=== PATIENT | female | born 1985 | race Caucasian/White ===

== ENCOUNTER 2018-07-26 21:30 | Emergency (ER) | payer OTHER ==
[2018-07-26] MEDS ORDERED: BABY ASPIRIN 81 MG CHEW PO ONE (21:55)
[2018-07-26] MEDS ORDERED: Ativan 2 MG/1 ML VIAL IV ONE (21:55)
[2018-07-26] MEDS ORDERED: TRANDATE 20 MG/5 ML SYRINGE IV ONE ×2 (21:55→22:21)
--- NOTE | 2018-07-26 22:04 | ERPHSYRPT ---
- History of Present Illness Time Seen by Provider: 07/26/18 21:48 Historian: patient Exam Limitations: no limitations Patient Subjective Stated Complaint: Chest pain Triage Nursing Assessment: Patient ambulated back to ED and transferred self to bed. Patient brought in from [facility]. Patient states she complained of chest pain while laying down around 2004. Patient's blood pressure was elevated 165/112 with pulse of 109. [facility] staff called nurse and was told to give Lisinopril 10mg and Citalopram 10mg. Patient had no relief so was brought to ER. Patient states she has been nauseated and vomiting. Patient's lungs clear a/ p anna. No edema noted. Heart tones audible. Physician History: Pt has been c/o chest pressure for days off and on, now steady since 6 PM in senior care. She is also c/o SOB, nausea, vomiting once, but no abdominal pain, diarrhea, fever, cold symptoms, productive cough. She is every day smoker, has a history of HTN, denies cardiac history. Timing/Duration: hour(s) (4) Activities at Onset: none Quality: pressure Location: central Chest Pain Radiation: no radiation Severity of Pain-Max: severe Severity of Pain-Current: severe Modifying Factors: Improves With: nothing Associated Symptoms: nausea, vomiting, shortness of breath Prior Chest Pain/Cardiac Workup: non-cardiac Nitro Today/Relief: no nitro taken today Aspirin Treatment Today: no aspirin today Allergies/Adverse Reactions: No Known Drug Allergies Allergy (Unverified 07/26/18 21:32) Home Medications: Citalopram Hydrobromide [Citalopram HBr] 10 mg PO DAILY 07/26/18 [History] Clonidine HCl 0.1 mg [Catapres 0.1 MG] 1 tab PO DAILY 07/26/18 [History] Lisinopril 10 mg [Zestril 10 MG] 1 tab PO DAILY 07/26/18 [History] Hx Influenza Vaccination/Date Given: No Hx Pneumococcal Vaccination/Date Given: No Immunizations Up to Date: Yes - Review of Systems Constitutional: No Symptoms Eyes: No Symptoms Ears, Nose, & Throat: No Symptoms Respiratory: Dyspnea Cardiac: Chest Pain Abdominal/Gastrointestinal: Nausea, Vomiting Genitourinary Symptoms: No Symptoms Musculoskeletal: No Symptoms Skin: No Symptoms Neurological: Dizziness Psychological: Anxiety All Other Systems: Reviewed and Negative - Past Medical History Neurological History: No Pertinent History ENT History: No Pertinent History Cardiac History: Hypertension Respiratory History: No Pertinent History Endocrine Medical History: No Pertinent History Musculoskeletal History: No Pertinent History GI Medical History: No Pertinent History History: No Pertinent History Psycho-Social History: Anxiety Female Reproductive Disorders: No Pertinent History - Past Surgical History Past Surgical History: Yes Neuro Surgical History: Other Cardiac: No Pertinent History Respiratory: No Pertinent History Gastrointestinal: No Pertinent History Genitourinary: No Pertinent History Musculoskeletal: No Pertinent History Female Surgical History: Tubal Ligation Other Surgical History: Cyst removed from brain july 31 2017 - Social History Smoking Status: Current every day smoker How long have you smoked: 10 years Exposure to second hand smoke: No Drug Use: marijuana, methamphetamines, narcotics Patient Lives Alone: No ([facility]) - Female History Hx Last Menstrual Period: Jun 22, 2018 Hx Now: No - Nursing Vital Signs Nursing Vital Signs: Initial Vital Signs Pulse Rate 115 H 07/26/18 21:36 Respiratory Rate 20 07/26/18 21:36 Blood Pressure 154/119 07/26/18 21:36 O2 Sat by Pulse Oximetry 100 07/26/18 21:36 Pain Scale Pain Intensity 5 - Physical Exam General Appearance: no apparent distress Eye Exam: PERRL/EOMI, eyes nml inspection Ears, Nose, Throat Exam: normal ENT inspection, pharynx normal, moist mucous membranes Neck Exam: normal inspection, non-tender, supple, No carotid bruit, No JVD Respiratory Exam: normal breath sounds, lungs clear, airway intact, No chest tenderness Cardiovascular Exam: normal heart sounds, normal peripheral pulses, tachycardia , No murmur Gastrointestinal/Abdomen Exam: soft, normal bowel sounds, No tenderness, No distention, No mass, No guarding, No ecchymosis, No pulsatile mass, No rebound, No organomegaly Back Exam: normal inspection, No CVA tenderness Extremity Exam: normal inspection, No calf tenderness, No kaylynn's sign Neurologic Exam: alert, oriented x 3, cooperative, other (anxious) Skin Exam: normal color, warm, dry, No rash Lymphatic Exam: adenopathy SpO2 Interpretation: normal SpO2: 100 O2 Delivery: Room Air - Course Nursing assessment & vital signs reviewed: Yes EKG Interpreted by Me: RATE (110/min), NORMAL AXIS, Non-specific ST Changes, Other (LVH pattern, poor R wave progression, repeat Ek:34 AM: NSR 82/min, normal axis, LVH pattern, unchanged.) - Radiology Exams Chest X-ray Interpretation: Interpreted by me, Negative Ordered Tests: Active Orders 24 hr Category Date Time Status Rod Tape Operator STAT Care 07/26/18 21:57 Active EKG-ER Only STAT Care 07/26/18 21:58 Active EKG-ER Only STAT Care 07/27/18 00:08 Active IV Insertion STAT Care 07/26/18 21:55 Active Oxygen-ED Only Nasal Cannula 2 lpm Care 07/26/18 21:55 Active CHEST 1 VIEW (PORTABLE) Stat Exams 07/26/18 21:57 Taken CBC W DIFF Stat Lab 07/26/18 22:10 Completed CK-Creatinine Phosphokinase Stat Lab 07/26/18 22:10 Completed CMP Stat Lab 07/26/18 22:10 Completed D-DIMER QUANTITATION Stat Lab 07/26/18 22:10 Completed LIPASE Stat Lab 07/26/18 22:10 Completed MAGNESIUM Stat Lab 07/26/18 22:10 Completed NT PRO BNP Stat Lab 07/26/18 22:10 Completed PROTIME WITH INR Stat Lab 07/26/18 22:10 Completed PTT Stat Lab 07/26/18 22:10 Completed TROPONIN Q3H Lab 07/26/18 22:10 Completed TROPONIN Q3H Lab 07/27/18 01:00 Ordered TROPONIN Q3H Lab 07/27/18 04:00 Ordered TROPONIN Q3H Lab 07/27/18 07:00 Ordered TROPONIN Q3H Lab 07/27/18 10:00 Ordered UA W/RFX UR CULTURE Stat Lab 07/26/18 23:40 Completed Urine Triage Profile Stat Lab 07/26/18 23:40 Completed Medication Summary Discontinued Medications Generic Name Dose Route Start Last Admin Trade Name Freq PRN Reason Stop Dose Admin Aspirin 324 mg 07/26/18 21:55 07/26/18 22:25 Baby Aspirin 81 Mg Chew PO 07/26/18 21:56 324 mg STAT ONE Administration Aspirin Confirm 07/26/18 22:20 Baby Aspirin 81 Mg Chew Administered 07/26/18 22:21 Dose 324 mg .ROUTE .STK-MED ONE Labetalol HCl 20 mg 07/26/18 21:55 07/26/18 22:25 Trandate 20 Mg/5 Ml Syringe IV 07/26/18 21:56 20 mg STAT ONE Administration Labetalol HCl Confirm 07/26/18 22:21 Trandate 20 Mg/5 Ml Syringe Administered 07/26/18 22:22 Dose 20 mg IV .STK-MED ONE Lorazepam 1 mg 07/26/18 21:55 07/26/18 22:24 Ativan 2 Mg/1 Ml Vial IV 07/26/18 21:56 1 mg STAT ONE Administration Lorazepam Confirm 07/26/18 22:21 Ativan 2 Mg/1 Ml Vial Administered 07/26/18 22:22 Dose 2 mg .ROUTE .STK-MED ONE Trimethoprim/Sulfamethoxazole 1 tab 07/27/18 01:50 07/27/18 01:52 Bactrim Ds Tablet PO 07/27/18 01:51 1 tab STAT STA Administration Trimethoprim/Sulfamethoxazole Confirm 07/27/18 01:52 Bactrim Ds Tablet Administered 07/27/18 01:53 Dose 1 tab PO .STK-MED ONE Lab/Rad Data: Laboratory Result Diagrams 07/26/18 22:10 07/26/18 22:10 Laboratory Results 07/26/18 07/26/18 07/26/18 Range/Units 23:40 23:40 22:10 WBC (4.0-10.5) K/mm3 RBC (4.1-5.4) M/mm3 Hgb (12.0-16.0) gm/dl Hct (35-47) % MCV (78-100) fl MCH (26-32) pg MCHC (32-36) g/dl RDW (11.5-14.0) % Plt Count (150-450) K/mm3 MPV (6-9.5) fl Gran % (36.0-66.0) % Eos # (Auto) (0-0.5) Absolute Lymphs (auto) (1.0-4.6) Absolute Monos (auto) (0.0-1.3) Lymphocytes % (24.0-44.0) % Monocytes % (0.0-12.0) % Eosinophils % (0.00-5.0) % Basophils % (0.0-0.4) % Absolute Granulocytes (1.4-6.9) Basophils # (0-0.4) PT (9.95-12.35) SECONDS INR (0.8-3.0) APTT (25.3-37.0) SECONDS D-Dimer (215-500) ng/mL Sodium (137-145) mmol/L Potassium (3.5-5.1) mmol/L Chloride (98-107) mmol/L Carbon Dioxide (22-30) mmol/L Anion Gap (5-15) MEQ/L BUN (7-17) mg/dL Creatinine (0.52-1.04) mg/dL Estimated GFR ML/MIN Glucose (74-106) mg/dL Calcium (8.4-10.2) mg/dL Magnesium (1.6-2.3) mg/dL Total Bilirubin (0.2-1.3) mg/dL AST (14-36) U/L ALT (0-35) U/L Alkaline Phosphatase (38-126) U/L Creatine Kinase (30-135) U/L Troponin I < 0.012 (0.000-0.034) ng/mL NT-Pro-B Natriuret Pep (0-450) pg/mL Serum Total Protein (6.3-8.2) g/dL Albumin (3.5-5.0) g/dL Lipase (23-300) U/L Urine Color STRAW (YELLOW) Urine Appearance CLEAR (CLEAR) Urine pH 8.0 (5-6) Ur Specific [place] 1.004 (1.005-1.025) Urine Protein NEGATIVE (Negative) Urine Ketones NEGATIVE (NEGATIVE) Urine Blood NEGATIVE (0-5) Anam/ul Urine Nitrite NEGATIVE (NEGATIVE) Urine Bilirubin NEGATIVE (NEGATIVE) Urine Urobilinogen NEGATIVE (0-1) mg/dL Ur Leukocyte Esterase LARGE (NEGATIVE) Urine WBC (Auto) 26-50 (0-5) /HPF Urine RBC (Auto) 0-2 (0-2) /HPF U Epithel Cells (Auto) RARE (FEW) /HPF Urine Bacteria (Auto) RARE (NEGATIVE) /HPF Urine Mucus (Auto) SLIGHT (NEGATIVE) /HPF Urine Culture Reflexed NO (NO) Urine Glucose NEGATIVE (NEGATIVE) mg/dL Urine Opiates Level NEGATIVE (NEGATIVE) Ur Methadone NEGATIVE (NEGATIVE) Urine Barbiturates NEGATIVE (NEGATIVE) Ur Phencyclidine (PCP) NEGATIVE (NEGATIVE) Urine Amphetamine NEGATIVE (NEGATIVE) U Benzodiazepine Level NEGATIVE (NEGATIVE) Urine Cocaine NEGATIVE (NEGATIVE) Urine Marijuana (THC) NEGATIVE (NEGATIVE) 07/26/18 07/26/18 07/26/18 Range/Units 22:10 22:10 22:10 WBC 7.2 (4.0-10.5) K/mm3 RBC 4.33 (4.1-5.4) M/mm3 Hgb 13.6 (12.0-16.0) gm/dl Hct 41.4 (35-47) % MCV 95.6 (78-100) fl MCH 31.4 (26-32) pg MCHC 32.9 (32-36) g/dl RDW 13.3 (11.5-14.0) % Plt Count 196 (150-450) K/mm3 MPV 10.6 H (6-9.5) fl Gran % 47.4 (36.0-66.0) % Eos # (Auto) 0.13 (0-0.5) Absolute Lymphs (auto) 2.97 (1.0-4.6) Absolute Monos (auto) 0.67 (0.0-1.3) Lymphocytes % 41.4 (24.0-44.0) % Monocytes % 9.3 (0.0-12.0) % Eosinophils % 1.8 (0.00-5.0) % Basophils % 0.1 (0.0-0.4) % Absolute Granulocytes 3.40 (1.4-6.9) Basophils # 0.01 (0-0.4) PT 10.5 (9.95-12.35) SECONDS INR 0.90 (0.8-3.0) APTT 33.9 (25.3-37.0) SECONDS D-Dimer < 215 L (215-500) ng/mL Sodium 141 (137-145) mmol/L Potassium 4.5 (3.5-5.1) mmol/L Chloride 105 (98-107) mmol/L Carbon Dioxide 29 (22-30) mmol/L Anion Gap 11.4 (5-15) MEQ/L BUN 15 (7-17) mg/dL Creatinine 0.68 (0.52-1.04) mg/dL Estimated GFR > 60.0 ML/MIN Glucose 98 (74-106) mg/dL Calcium 9.6 (8.4-10.2) mg/dL Magnesium 2.2 (1.6-2.3) mg/dL Total Bilirubin 0.20 (0.2-1.3) mg/dL AST 73 H (14-36) U/L ALT 99 H (0-35) U/L Alkaline Phosphatase 70 (38-126) U/L Creatine Kinase 46 (30-135) U/L Troponin I (0.000-0.034) ng/mL NT-Pro-B Natriuret Pep 62.1 (0-450) pg/mL Serum Total Protein 7.3 (6.3-8.2) g/dL Albumin 4.1 (3.5-5.0) g/dL Lipase 67 (23-300) U/L Urine Color (YELLOW) Urine Appearance (CLEAR) Urine pH (5-6) Ur Specific [place] (1.005-1.025) Urine Protein (Negative) Urine Ketones (NEGATIVE) Urine Blood (0-5) Anam/ul Urine Nitrite (NEGATIVE) Urine Bilirubin (NEGATIVE) Urine Urobilinogen (0-1) mg/dL Ur Leukocyte Esterase (NEGATIVE) Urine WBC (Auto) (0-5) /HPF Urine RBC (Auto) (0-2) /HPF U Epithel Cells (Auto) (FEW) /HPF Urine Bacteria (Auto) (NEGATIVE) /HPF Urine Mucus (Auto) (NEGATIVE) /HPF Urine Culture Reflexed (NO) Urine Glucose (NEGATIVE) mg/dL Urine Opiates Level (NEGATIVE) Ur Methadone (NEGATIVE) Urine Barbiturates (NEGATIVE) Ur Phencyclidine (PCP) (NEGATIVE) Urine Amphetamine (NEGATIVE) U Benzodiazepine Level (NEGATIVE) Urine Cocaine (NEGATIVE) Urine Marijuana (THC) (NEGATIVE) - Progress Progress: improved Air Movement: good Progress Note: 07/27/18 01:44 Pt states, she feels better, chest pain, resolved, blood pressure under control , stable, no difficulty breathing or nausea, dizziness. She is being discharged after second troponin negative to rest x 2-3 days, and follow up with her physician in 2-3 days, she was started on PO Aspirin and Metoprolol 50 mg BID. Blood Culture(s) Obtained: No Antibiotics given: No Counseled pt/family regarding: lab results, diagnosis, need for follow-up, rad results - Departure Departure Disposition: [facility]/Detention Clinical Impression: Chest pain Qualifiers: Chest pain type: unspecified Qualified Code(s): R07.9 - Chest pain, unspecified Hypertension Qualifiers: Hypertension type: unspecified Qualified Code(s): I10 - Essential (primary) hypertension Urinary tract infection Qualifiers: Urinary tract infection type: acute cystitis Hematuria presence: without hematuria Qualified Code(s): N30.00 - Acute cystitis without hematuria Condition: Stable Critical Care Time: No Referrals: RAHUL MORA MD [Primary Care Provider] - Instructions: Atypical Chest Pain, High Blood Pressure (DC), Urinary Tract Infection, Adult (DC), Chest Pain (DC) Additional Instructions: Rest x 2-3 days, and follow up with your physician in 2-3 days, return if severe shortness of breath, dizziness, fever> 102 F,chest pain, vomiting! Prescriptions: Aspirin EC 325 mg [Ecotrin 325 MG] 325 mg PO DAILY #30 tablet.ec Metoprolol Succinate 50 mg [Toprol Xl 50 MG] 50 mg PO BID #30 tablet Smz/Tmp Ds Tablet [Bactrim Ds Tablet] 1 tab PO Q12H 7 Days #14 tablet
[2018-07-26 22:19] LABS: BASOPHIL % 0.1 % (0.0-0.4); Basophil (Absolute #) 0.01 (0-0.4); Eosinophil % 1.8 % (0.00-5.0); Eosinophil (Absolute #) 0.13 (0-0.5); Granulocytes % 47.4 % (36.0-66.0); Hematocrit 41.4 % (35-47); Hemoglobin 13.6 gm/dl (12.0-16.0); Lymphocyte (Absolute #) 2.97 (1.0-4.6); Lymphocytes % 41.4 % (24.0-44.0); Mean Cell Volume 95.6 fl (78-100); Mean Corpuscular Hemoglobin 31.4 pg (26-32); Mean Corpuscular Hgb Concent. 32.9 g/dl (32-36); Mean Platelet Volume 10.6 fl (6-9.5); Monocyte (Absolute #) 0.67 (0.0-1.3); Monocytes % 9.3 % (0.0-12.0); Platelet Count 196 K/mm3 (150-450); Red Blood Count 4.33 M/mm3 (4.1-5.4); Red Cell Distribution Width 13.3 % (11.5-14.0); White Blood Count 7.2 K/mm3 (4.0-10.5)
[2018-07-26] MEDS ORDERED: BABY ASPIRIN 81 MG CHEW ONE (22:20)
[2018-07-26] MEDS ORDERED: Ativan 2 MG/1 ML VIAL ONE (22:21)
[2018-07-26 22:26] LABS: PROTIME 10.5 SECONDS (9.95-12.35)
[2018-07-26 22:29] LABS: PTT 33.9 SECONDS (25.3-37.0)
[2018-07-26 22:39] LABS: ALBUMIN 4.1 g/dL (3.5-5.0); ALKALINE PHOSPHATASE 70 U/L (38-126); ANION GAP 11.4 MEQ/L (5-15); BLOOD UREA NITROGEN 15 mg/dL (7-17); CHLORIDE 105 mmol/L (98-107); CK-Creatinine Phosphokinase 46 U/L (30-135); Calcium 9.6 mg/dL (8.4-10.2); Carbon Dioxide 29 mmol/L (22-30); Creatinine 1 0.68 mg/dL (0.52-1.04); Glucose 98 mg/dL (74-106); LIPASE 67 U/L (23-300); MAGNESIUM 2.2 mg/dL (1.6-2.3); NT PRO BNP 62.1 pg/mL (0-450); Potassium 4.5 mmol/L (3.5-5.1); SGOT/AST 73 U/L (14-36); SGPT/ALT 99 U/L (0-35); SODIUM 141 mmol/L (137-145); Total Protein 7.3 g/dL (6.3-8.2)
[2018-07-26 22:40] LABS: D-DIMER QUANTITATION < 215 ng/mL (215-500)
[2018-07-27 00:08] LABS: Amphetamine,Urine NEGATIVE (NEGATIVE); Barbiturate,Urine NEGATIVE (NEGATIVE); Benzodiazepine,Urine NEGATIVE (NEGATIVE); Cocaine,Urine NEGATIVE (NEGATIVE); Methadone,Urine NEGATIVE (NEGATIVE); Opiate,Urine NEGATIVE (NEGATIVE); PCP,Urine NEGATIVE (NEGATIVE); THC,Urine NEGATIVE (NEGATIVE)
[2018-07-27 00:30] LABS: Appearance CLEAR (CLEAR); Bacteria RARE /HPF (NEGATIVE); Bilirubin NEGATIVE (NEGATIVE); Blood NEGATIVE Ery/ul (0-5); Epithelial Cells RARE /HPF (FEW); Glucose NEGATIVE (NEGATIVE); Ketones NEGATIVE (NEGATIVE); Leukocyte Esterase LARGE (NEGATIVE); Mucus SLIGHT /HPF (NEGATIVE); Nitrite NEGATIVE (NEGATIVE); Protein,Urine Dip NEGATIVE (Negative); RBC 0-2 /HPF (0-2); Specific Gravity 1.004 (1.005-1.025); Urobilinogen NEGATIVE mg/dL (0-1); WBC 26-50 /HPF (0-5)
[2018-07-27] MEDS ORDERED: BACTRIM DS TABLET PO STA (01:50)
[2018-07-27] MEDS ORDERED: BACTRIM DS TABLET PO ONE (01:52)
[2018-07-27 01:57] VITALS: BP 131/75; PULSE 95
[2018-07-27 02:11] VITALS: O2SAT 100
--- NOTE | 2018-07-27 08:44 | XRAY ---
Indication: Chest pain. Comparison: None Portable chest demonstrates normal heart, lungs, and bony thorax.
== END 2018-07-27 02:24 | disposition home or self-care (01) ==
LOC: ED 21:30
DX: R07.9 Chest pain, unspecified (principal); I10 Essential (primary) hypertension; N39.0 Urinary tract infection, site not specified; R11.2 Nausea with vomiting, unspecified; F41.9 Anxiety disorder, unspecified; R42 Dizziness and giddiness; R06.02 Shortness of breath; Z72.0 Tobacco use; Z79.899 Other long term (current) drug therapy
CPT/HCPCS: 36000; 36415; 71045; 80053; 80307; 81001; 82550; 83690; 83735; 83880; 84484; 85025; 85379; 85610; 85730; 93005; 93041; 96374; 96375; 99284; J2060; A9270-GY